=== PATIENT | male | born 1970 | race Caucasian/White ===

== ENCOUNTER 2016-09-07 17:07 | Emergency (ER) | payer BC | END 2016-09-07 20:05 | disposition home or self-care (01) | LOC: ER 17:07 | DX: F32.9 Major depressive disorder, single episode, unspecified (principal); L30.9 Dermatitis, unspecified; I10 Essential (primary) hypertension; Z86.73 Personal history of transient ischemic attack (TIA), and cerebral infarction without residual deficits; Z88.1 Allergy status to other antibiotic agents; Z91.040 Latex allergy status | CPT/HCPCS: 36415 ==